=== PATIENT | male | born 1990 | race Caucasian/White ===

== ENCOUNTER 2019-03-09 12:29 | Emergency (ER) | payer OTHER ==
[~2019-03-09] VITALS: Ht 180.3 cm; Wt 60.8 kg
[2019-03-09 12:39] VITALS: BP 127/79; Ht 180.3 cm; Wt 60.8 kg
== END 2019-03-09 14:57 | disposition home or self-care (01) ==
LOC: ED 12:29
DX: S06.0X0A Concussion without loss of consciousness, initial encounter (principal); S00.83XA Contusion of other part of head, initial encounter; S00.31XA Abrasion of nose, initial encounter; M54.2 Cervicalgia; Y04.0XXA Assault by unarmed brawl or fight, initial encounter; Y93.89 Activity, other specified; Y92.89 Other specified places as the place of occurrence of the external cause; Y99.0 Civilian activity done for income or pay

== ENCOUNTER 2019-03-16 07:52 | Emergency (ER) | payer OTHER ==
[~2019-03-16] VITALS: Ht 180.3 cm; Wt 58.1 kg
[2019-03-16 07:56] VITALS: Ht 180.3 cm; Wt 58.1 kg
[2019-03-16 11:15] VITALS: BP 125/75
== END 2019-03-16 11:05 | disposition home or self-care (01) ==
LOC: ED 07:52
DX: F07.81 Postconcussional syndrome (principal); M54.2 Cervicalgia; M54.9 Dorsalgia, unspecified; F17.210 Nicotine dependence, cigarettes, uncomplicated; Y04.0XXD Assault by unarmed brawl or fight, subsequent encounter
CPT/HCPCS: 99406